=== PATIENT | female | born 1960 | race Asian ===

== ENCOUNTER 2018-10-05 12:23 | Outpatient (CLI) | payer OTHER ==
--- NOTE | 2018-10-05 13:36 | Diagnostic Imaging Report ---
Right hand 3 views Indication: Pain and swelling Comparison: Left hand x-rays the same day Findings: Mild generalized soft tissue prominence is noted. No evidence of acute fracture or dislocation. Mild degenerative changes are noted. Small ossicle is seen adjacent to the distal ulnar styloid possibly due to old trauma. No gross erosions. Impression: Mild joint soft tissue prominence, nonspecific. Mild degenerative changes. No acute osseous abnormality. In the setting of trauma, if clinical symptoms persist and there is continued concern for an occult fracture, follow up exams in 5-7 days is suggested.
--- NOTE | 2018-10-05 13:38 | Diagnostic Imaging Report ---
Left hand 3 views Indication: Pain and swelling Comparison: Right hand x-rays the same day Findings: Mild generalized soft tissue prominence is noted. No evidence of acute fracture or dislocation. Mild degenerative changes are noted. No gross erosions. Impression: Mild joint soft tissue prominence, nonspecific. Mild degenerative changes. No acute fracture identified. In the setting of trauma, if clinical symptoms persist and there is continued concern for an occult fracture, follow up exams in 5-7 days is recommended.
== END 2018-10-05 12:46 ==
LOC: EEVIPCON 12:23 → RAD 12:23
PROVIDERS: ATTEND Family Medicine
DX: M19.042 Primary osteoarthritis, left hand (principal); M19.041 Primary osteoarthritis, right hand
CPT/HCPCS: 73130-TC-LT; 73130-TC-RT

== ENCOUNTER 2018-12-05 14:23 | Outpatient (CLI) | payer OTHER ==
--- NOTE | 2018-12-06 08:15 | Diagnostic Imaging Report ---
Renal ultrasound HISTORY: Abnormal renal function test The right kidney measures 9.8 x 4.8 x 6.0 cm. There is an approximate 8.0 x 5.6 x 7.1 cm fairly well-circumscribed round heterogeneous solid mass within the lower pole of the kidney. Etiology uncertain. Neoplasm cannot be excluded. A CT scan is recommended for further assessment and evaluation. No hydronephrosis. The left kidney measures 9.8 x 5.5 x 4.7 cm. No focal lesions. No hydronephrosis. No intraluminal abnormality seen within the urinary bladder. Minimal post void urine residual. IMPRESSION: 1. Solid mass right kidney. Neoplasm cannot be excluded. A CT scan is recommended for further characterization and assessment. 2. No hydronephrosis
== END 2018-12-05 15:30 | disposition home or self-care (01) ==
LOC: RAD 14:23
PROVIDERS: ATTEND Legal Medicine
DX: N28.89 Other specified disorders of kidney and ureter (principal); E11.22 Type 2 diabetes mellitus with diabetic chronic kidney disease; N18.3 Chronic kidney disease, stage 3 (moderate)
CPT/HCPCS: 76770-TC

== ENCOUNTER 2019-01-04 10:47 | Outpatient (CLI) | payer OTHER ==
[2019-01-04] MEDS ORDERED: IOHEXOL 300mgI/mL 100 ML VIAL IVP ONE (10:48)
--- NOTE | 2019-01-04 12:47 | Diagnostic Imaging Report ---
CT abdomen without and with IV contrast History: Renal mass Comparison: Renal ultrasound on 12/05/2018. Technique: Axial images were obtained from the lung bases to the bilateral proximal femurs before and following administration of intravenous contrast. Venous images were performed in the portal venous phase. Delayed images were not performed. Reconstructions were made. Total DLP 788, CTD I 15 Findings: 2 adjacent 2 millimeter nodules of the right lung base are noted. Fatty liver is noted. No focal hepatic lesions identified. Small gallstone is noted. No focal splenic lesions. No focal pancreatic or adrenal lesions. There is a large right renal mass involving the mid to lower pole measuring 8.5 x 4.8 cm with central areas of low density. Extension to the renal vein is difficult to assess. There is associated mass effect upon the right ureter at the proximal aspect. No evidence of hydronephrosis. There is likely borderline prominent right retroperitoneal lymph node adjacent to the medial aspect of the mass and anterior to the right psoas muscle measuring 1.3 x 0.4 cm (image 51, series 4 and 51 series 2). Additional few nonenlarged right retroperitoneal lymph nodes are noted. Mildly distended urinary bladder is noted. No evidence of bowel obstruction. No appendicitis. No free fluid or free air. The osseous structures demonstrate no acute abnormalities. Mild degenerative changes are noted. Moderate atherosclerosis is noted. IMPRESSION: Large mid to lower pole right renal mass with enhancement and central areas of low attenuation. Findings are most represent neoplastic process, probably renal cell carcinoma. Other less likely etiologies would include renal oncocytoma. Probable small lymph node located medially to this mass anterior to the right psoas muscle measuring 1.3 x 0.4 cm. Additional smaller right retroperitoneal lymph nodes are noted. Neoplastic involvement cannot be completely excluded. Small gallstones. Fatty liver. Moderate atherosclerosis. 2 tiny nodules measuring up to 2 mm of right lung base nonspecific however, however follow-up surveillance exam in 6 months is recommended if no old exams are available for comparison.
== END 2019-01-04 11:36 | disposition home or self-care (01) ==
LOC: RAD 10:47
PROVIDERS: ATTEND Family Medicine
DX: N28.89 Other specified disorders of kidney and ureter (principal); K76.0 Fatty (change of) liver, not elsewhere classified; R91.8 Other nonspecific abnormal finding of lung field; N32.89 Other specified disorders of bladder; M47.819 Spondylosis without myelopathy or radiculopathy, site unspecified; R59.0 Localized enlarged lymph nodes; K80.80 Other cholelithiasis without obstruction; I70.90 Unspecified atherosclerosis; E11.22 Type 2 diabetes mellitus with diabetic chronic kidney disease; N18.3 Chronic kidney disease, stage 3 (moderate)
CPT/HCPCS: Q9967

== ENCOUNTER 2019-03-30 08:15 | Outpatient (CLI) | payer OTHER ==
[2019-03-30 08:34] LABS: % EOSINOPHILS 8.4 % (0.0-5.0); % LYMPHOCYTES 27.3 % (20.0-50.0); % MONOCYTES 6.6 % (2.0-10.0); % NEUTROPHILS 56.7 % (40.0-80.0); BASOPHILE ABSOLUTE 0.1 Th/cumm (0-0.2); EOSINOPHILE ABSOLUTE 0.5 Th/cmm (0.1-0.4); HEMATOCRIT 29.1 % (41.0-60); HEMOGLOBIN 9.9 gm/dL (12-16); LYMPHOCYTE ABSOLUTE 1.6 Th/cmm (1.5-3.0); MEAN CELL VOLUME 80.1 fl (81-100); MEAN CORPUSCULAR HEMOGLOBIN 27.3 pg (27.0-31.0); MEAN CORPUSCULAR HGB CONC 34.1 pg (28.0-36.0); MONOCYTE ABSOLUTE 0.4 Th/cmm (0.3-1.0); NEUTROPHILE ABSOLUTE 3.1 Th/cmm (1.8-8.0); PLATELET COUNT 310 Th/cmm (150-400); RED BLOOD COUNT 3.64 Mil/cmm (3.80-5.10); RED CELL DISTRIBUTION WIDTH 13.3 % (11.5-20.0); WHITE BLOOD COUNT 5.7 Th/cmm (4.8-10.8)
[2019-03-30 09:01] LABS: ANION GAP 12.4 (7.0-16.0); CALCIUM SERUM 9.8 mg/dL (8.6-10.3); CARBON DIOXIDE 26.3 mEq/L (21.0-31.0); CREATININE - SERUM 2.1 mg/dL (0.6-1.2); GFR AFRICAN-AMERICAN 31.2 ml/min (>90); GFR NON AFRICAN-AMERICAN 25.8 ml/min; POTASSIUM SERUM 3.7 mEq/L (3.5-5.1)
== END 2019-03-30 08:30 | disposition home or self-care (01) ==
LOC: LAB 08:15
DX: C64.9 Malignant neoplasm of unspecified kidney, except renal pelvis (principal); E11.22 Type 2 diabetes mellitus with diabetic chronic kidney disease; N18.3 Chronic kidney disease, stage 3 (moderate)
CPT/HCPCS: 36415-UA; 80048-TC; 85025-TC